=== PATIENT | male | born 1980 | race Caucasian/White ===

== ENCOUNTER → 2017-12-23 | Outpatient (REF) | payer OTHER | LOC: M LAB REF 13:36 | DX: J02.9 Acute pharyngitis, unspecified (principal) ==

== ENCOUNTER → 2020-03-05 | Outpatient (CLI) | payer OTHER | LOC: M LABSMTC 12:56 → EEVIPCON 12:56 | PROVIDERS: ATTEND Pediatrics | DX: Z20.828 Contact with and (suspected) exposure to other viral communicable diseases (principal) ==

== ENCOUNTER 2024-04-20 07:12 | Emergency (ER) | payer OTHER ==
[~2024-04-20] VITALS: Ht 177.8 cm; Wt 102.8 kg
[2024-04-20 09:02] VITALS: BP 110/63; TEMP 97.4; O2SAT 96
== END 2024-04-20 09:05 | disposition home or self-care (01) ==
LOC: M ED 07:12
DX: R07.89 Other chest pain (principal); Z79.899 Other long term (current) drug therapy